=== PATIENT | female | born 1970 | race Hispanic/Latino ===

== ENCOUNTER → 2018-02-25 | Outpatient (CLI) | payer OTHER ==
[~2018-02-25] MED LIST: BIRTH CONTROL PILLS PO; DIOVAN80 MG PO; HYDROCHLOROTHIA25 MG PO; K DUR10 MEQ PO; NEXIUM40 MG PO; PANTOPRAZOLE SO40 MG PO
--- NOTE | 2018-02-25 09:43 | Diagnostic Imaging Report ---
PROCEDURE:US LIVER COMPARISON:Liver ultrasound 05/09/2014. INDICATIONS:elevated liver enzymes TECHNIQUE: Mccarthy-scale and color doppler transverse and longitudinal images of the right upper quadrant of the abdomen were obtained. FINDINGS: Somewhat limited images due to patient body habitus and overlying bowel gas. Liver: Measures 16.8 cm in right mid-clavicular line. Demonstrates increased echogenicity. No masses. Main portal vein: Measures 1 cm. Hepatopedal flow. Gallbladder: Unremarkable appearance without stones, wall thickening, or distension. Common Bile Duct: Measures 0.2 cm Sonographic Honeycutt's sign: Negative Right kidney: Measures 10.9 cm. Normal echogenicity. No solid masses or hydronephrosis. Pancreas: The visualized portions are unremarkable. Inferior vena cava: The visualized portions are unremarkable. Aorta: The visualized portions are unremarkable. Ascites: None in the right upper quadrant of the abdomen. CONCLUSION: Hepatomegaly with hepatic steatosis. Dictated by: JESSE WEBER M.D. on 02/25/2018 at 9:49 Electronically approved by: JESSE WEBER M.D. on 02/25/2018 at 9:49
== END ==
LOC: US 08:37
PROVIDERS: ATTEND Internal Medicine
DX: I11.9 Hypertensive heart disease without heart failure (principal); I65.23 Occlusion and stenosis of bilateral carotid arteries; R94.5 Abnormal results of liver function studies
CPT/HCPCS: 76705; 93306; 93880